=== PATIENT | female | born 1980 | race Caucasian/White ===

== ENCOUNTER 2024-04-08 16:45 | Outpatient (CLI) | payer BC, SELFPAY | END 2024-04-08 23:59 | disposition home or self-care (01) | LOC: LAB.DROPOF 16:45 | PROVIDERS: PCP Nurse Practitioner Family; Visit Provider Nurse Practitioner Family | DX: R39.9 Unspecified symptoms and signs involving the genitourinary system (principal); N39.0 Urinary tract infection, site not specified | CPT/HCPCS: 87086 ==

== ENCOUNTER 2025-04-09 14:25 | Outpatient (CLI) | payer MEDICAID, SELFPAY | END 2025-04-09 23:59 | disposition home or self-care (01) | LOC: LAB.DROPOF 04-10 12:27 | PROVIDERS: PCP Family Medicine; Visit Provider Family Medicine | DX: R39.9 Unspecified symptoms and signs involving the genitourinary system (principal) | CPT/HCPCS: 87086 ==